=== PATIENT | male | born 1970 | race African-American/Black ===

== ENCOUNTER 2020-05-07 20:43 | Emergency (ER) | payer OTHER ==
[~2020-05-07] VITALS: Ht 188 cm; Wt 99.8 kg
[2020-05-07 20:50] VITALS: Ht 188 cm; Wt 99.8 kg
[2020-05-07 21:38] LABS: BASOPHIL % 1.4 % (0.2-1.5); PLATELET COUNT 242 x10^3mcL (152-348); RED CELL DISTRIBUTION WIDTH 13.8 % (12.1-16.2)
[2020-05-07 21:55] LABS: ALKALINE PHOSPHATASE 64 U/L (46-116); ALT/SGPT 49 U/L (16-63); AST/SGOT 29 U/L (15-37); BILIRUBIN TOTAL 0.36 mg/dL (0.20-1.00); CALCIUM 8.7 mg/dL (8.5-10.1); CARBON DIOXIDE 30.8 mmol/L (21-32); CHLORIDE SERUM 94 mmol/L (98-107); CREATININE SERUM 1.3 mg/dL (0.7-1.3); GFR1 > 60 mL/min; GLUCOSE SERUM 135 mg/dL (74-106); LIPASE 108 IU/L (73-393); SODIUM SERUM 132 mmol/L (136-145); TOTAL PROTEIN, SERUM 7.9 g/dL (6.4-8.2)
[2020-05-07 21:58] LABS: POTASSIUM SERUM 2.6 mmol/L (3.5-5.1)
[2020-05-07 23:54] VITALS: BP 130/74
== END 2020-05-07 23:54 | disposition home or self-care (01) ==
LOC: ED 20:43
PROVIDERS: Emergency Medicine
DX: K29.70 Gastritis, unspecified, without bleeding (principal); E87.6 Hypokalemia; I10 Essential (primary) hypertension; M54.9 Dorsalgia, unspecified
CPT/HCPCS: J1885

== ENCOUNTER 2020-05-13 23:05 | Emergency (ER) | payer OTHER ==
[~2020-05-13] VITALS: Ht 188 cm; Wt 103.6 kg
[2020-05-13 23:14] VITALS: Ht 188 cm; Wt 103.6 kg
[2020-05-14 02:40] VITALS: BP 140/80
== END 2020-05-14 02:40 | disposition home or self-care (01) ==
LOC: ED 23:05
DX: K80.21 Calculus of gallbladder without cholecystitis with obstruction (principal); I10 Essential (primary) hypertension
CPT/HCPCS: J1885